=== PATIENT | female | born 1965 | race Two or more races ===

== ENCOUNTER 2021-02-10 11:53 | Outpatient (REF) | payer MEDICAID, SELFPAY ==
--- NOTE | ~2021-02-10 | MM_ITS ---
EXAMINATION: MM SCREENING DIGITAL BREAST TOMOSYNTHESIS, BILATERAL CLINICAL INFORMATION: Screening. Asymptomatic. The lifetime risk of breast cancer based on the Tyrer-Cuzick Model is 10.0%. COMPARISON: Mammography: None. TECHNIQUE: Digital breast tomosynthesis is performed in both the craniocaudal and mediolateral oblique views along with computer-aided detection (CAD). Synthesized 2D images are generated from the tomosynthesis. FINDINGS: There are scattered areas of fibroglandular density (ACR BI-RADS breast composition Category b). Within the left breast, about the upper outer aspect, approximately 6 cm from the nipple, there is a circumscribed 5 mm density without definite spiculation or microcalcifications for which further evaluation with spot compression views and ultrasound is recommended. Within the inferior medial aspect of the right breast, there is a lobular density measuring approximately 1.4 x 0.9 cm in size 6 cm from the nipple. Spot compression view and ultrasound is recommended. MM/MM tomosynthesis screening BI IMPRESSION: Bilateral breast densities for further evaluation as described. ASSESSMENT: BI-RADS 0: Incomplete - Need Additional Imaging Evaluation RECOMMENDATION: 1. Additional views of the bilateral breasts. 2. Targeted ultrasound if warranted after review of the additional views. 3. Radiology department staff will contact the patient for additional imaging. This patient's information was entered into a reminder system with a target due date for their next mammogram.
== END 2021-02-10 11:54 | disposition home or self-care (01) ==
LOC: HO.MAMMO 11:53
PROVIDERS: Visit Provider Nurse Practitioner
DX: Z12.31 Encounter for screening mammogram for malignant neoplasm of breast (principal)
CPT/HCPCS: 77063; 77067

== ENCOUNTER 2021-02-13 07:48 | Outpatient (REF) | payer MEDICAID, SELFPAY ==
--- NOTE | ~2021-02-13 | US_ITS ---
EXAMINATION: US DIAGNOSTIC ULTRASOUND BREAST, RIGHT CLINICAL INFORMATION: Right breast density inferior medial aspect.. COMPARISON: February 10, 2021 and February 13, 2021. TECHNIQUE: Ultrasound of the breast is performed with real-time leahy scale imaging and color Doppler. FINDINGS: Targeted right breast ultrasound no abnormal cystic or solid mass identified. No region of abnormal distal sound shadowing. No edematous change identified. Results are discussed with the patient at time of visit. US/US breast RT limited IMPRESSION: Right breast mammographic density without ultrasound correlate which may represent asymmetric island of breast parenchyma. Recommend 6 month follow-up right breast mammography. ASSESSMENT: BI-RADS 3: Probably Benign RECOMMENDATION: Diagnostic right mammography in 6 months. Diagnostic left ultrasound in 6 months.
--- NOTE | ~2021-02-13 | US_ITS ---
EXAMINATION: US DIAGNOSTIC ULTRASOUND BREAST, LEFT CLINICAL INFORMATION: Density upper outer aspect.. COMPARISON: Mammography of February 10, 2021 and February 13, 2021. TECHNIQUE: Ultrasound of the breast is performed with real-time leahy scale imaging and color Doppler. FINDINGS: Targeted left breast ultrasound demonstrates at the 2:00 position approximately 6 cm from nipple a 4 x 4 millimeter hypoechoic lesion with distal sound enhancement and no distal sound shadowing. No internal vascularity is identified. US/US breast LT limited IMPRESSION: 5 mm question complex cyst upper outer aspect of the left breast for which 6 month follow-up ultrasound is recommended. ASSESSMENT: BI-RADS 3: Probably Benign RECOMMENDATION: Diagnostic right mammography in 6 months. Diagnostic left ultrasound in 6 months.
--- NOTE | ~2021-02-13 | MM_ITS ---
EXAMINATION: MM DIAGNOSTIC DIGITAL BREAST TOMOSYNTHESIS, BILATERAL CLINICAL INFORMATION: Bilateral breast density, 1 in the upper outer aspect of the left breast and the other in the inferomedial aspect of the right breast. COMPARISON: Mammography: 02/10/2021 TECHNIQUE: Digital breast tomosynthesis is performed. 2D images are generated from the tomosynthesis. The following views are obtained: Spot compression views of both breasts in craniocaudal and 90 degree mediolateral views. FINDINGS: There are scattered areas of fibroglandular density (ACR BI-RADS breast composition Category b). LEFT BREAST: There is persistence of a circumscribed density about the upper outer aspect of the left breast measuring 5 mm in diameter and lying approximately 6 cm from the nipple. Targeted left breast ultrasound demonstrates at the 2 o'clock position approximately 6 cm from nipple, a 4 x 4 mm hypoechoic lesion with distal sound enhancement and no distal sound shadowing. No internal vascularity is identified. RIGHT BREAST: There is persistence of a lobular density about the inferomedial aspect of the right breast 7 cm from the nipple. This measures approximately 1.6 x 0.9 cm in size. TARGETED RIGHT BREAST ULTRASOUND: No abnormal cystic or solid mass identified. No region of abnormal distal sound shadowing. No edematous change identified. Results are discussed with the patient at time of visit. MM/MM tomosynthesis added view BI IMPRESSION: 1. A 5 mm question complex cyst, upper outer aspect of the left breast, for which 6 month follow-up ultrasound is recommended. 2. Right breast mammographic density without ultrasound correlate which may represent asymmetric island of breast parenchyma. Recommend 6 month follow-up right breast mammography. ASSESSMENT: BI-RADS 3: Probably Benign RECOMMENDATION: 1. Diagnostic right mammography in 6 months. 2. Diagnostic left ultrasound in 6 months. This patient's information was entered into a reminder system with a target due date for their next mammogram.
== END 2021-02-13 07:49 | disposition home or self-care (01) ==
LOC: HO.MAMMO 07:48
PROVIDERS: Visit Provider Nurse Practitioner
DX: R92.2 Inconclusive mammogram (principal)
CPT/HCPCS: 76642; 77062; 77066

== ENCOUNTER 2021-08-13 13:16 | Outpatient (REF) | payer MEDICAID, SELFPAY ==
--- NOTE | ~2021-08-13 | MM_ITS ---
EXAMINATION: MM DIAGNOSTIC DIGITAL BREAST TOMOSYNTHESIS, RIGHT US DIAGNOSTIC ULTRASOUND BREAST, LEFT CLINICAL INFORMATION: Short interval six-month follow-up: Focal nodular asymmetry right breast central lower inner quadrant and probable small complicated cyst upper outer left breast. The lifetime risk of breast cancer based on the Tyrer-Cuzick Model is 10%. COMPARISON: Mammography: 02/13/2021, 02/10/2021 (BI-RADS 0, baseline), bilateral ultrasound 02/13/2021. TECHNIQUE: Digital breast tomosynthesis is performed in both the craniocaudal and mediolateral oblique views along with computer-aided detection (CAD). Synthesized 2D images are generated from the tomosynthesis. Ultrasound left breast is targeted to the upper outer quadrant. Grayscale imaging and color Doppler are performed without and with harmonics. FINDINGS: Right Mammography: There are scattered areas of fibroglandular density (ACR BI-RADS breast composition Category b). Right breast parenchymal pattern is similar to prior studies. Macrolobulated focal nodular asymmetry lower inner quadrant is stable. Remainder of the breast is unremarkable. Right breast will be reassessed again at time of annual bilateral mammography, due in 6 months. Left Ultrasound: Ultrasound left breast demonstrates stable circumscribed hypoechoic nodule 2:00 position 6 cm from nipple measuring just under 5 mm. There is some peripheral mural low-level echogenicity which may represent apocrine metaplasia. There is increased through-transmission of sound. No interval solid component or associated color flow. Left nodule will be reassessed again at time of annual bilateral mammography, due in 6 months. Results are provided to the patient at time of visit by the technologist. MM/MM tomosynthesis diagnostic RT IMPRESSION: Right: -Macrolobulated focal nodular asymmetry stable from baseline exam. Left: -Probable benign complicated cyst just under 5 mm stable from prior targeted ultrasound. ASSESSMENT: BI-RADS 3: Probably Benign RECOMMENDATION: -Diagnostic mammography at time of annual bilateral exam, due in 6 months. -Targeted left breast ultrasound at time of diagnostic mammography appointment, due in 6 months. This patient's information was entered into a reminder system with a target due date for their next mammogram.
== END 2021-08-13 13:17 | disposition home or self-care (01) ==
LOC: HO.MAMMO 13:16
PROVIDERS: PCP Nurse Practitioner; Visit Provider Nurse Practitioner
DX: R92.2 Inconclusive mammogram (principal)
CPT/HCPCS: 76642; 77061; 77065

== ENCOUNTER 2022-02-19 13:11 | Outpatient (REF) | payer MEDICAID, SELFPAY ==
--- NOTE | ~2022-02-19 | MM_ITS ---
EXAMINATION: MM DIAGNOSTIC DIGITAL BREAST TOMOSYNTHESIS US TARGETED BREAST, LEFT CLINICAL INFORMATION: Left breast diagnostic for complex cyst. Yearly screening right mammography. The lifetime risk of breast cancer based on the Tyrer-Cuzick Model is 12.0%. COMPARISON: Mammography: 08/13/2021 and 02/13/2021 as well as 02/10/2021. TECHNIQUE: Digital breast tomosynthesis is performed in both the craniocaudal and mediolateral oblique views along with computer-aided detection (CAD). Synthesized 2-D images are generated from the tomosynthesis. Targeted left breast ultrasound. FINDINGS: There are scattered areas of fibroglandular density (ACR BI-RADS breast composition Category b). Stable lobulated density is seen within the inferior medial aspect of the right breast. No abnormal dominant mass or suspicious grouping of microcalcifications is identified. ULTRASOUND: Targeted ultrasound evaluation of the left breast 2 o'clock position, approximately 6 cm from the nipple, again demonstrates a 4 x 3 x 4 mm hypoechoic structure with some increased through sound transmission with what appears to be some peripheral wall echogenicity without definite central mural nodule. No internal vascularity present. Results are discussed with the patient at time of visit. MM/MM tomosynthesis diagnostic BI IMPRESSION: 1. There are no significant changes from prior study. Stable right breast lobular density for which there was no ultrasound correlate on previous study. 2. Stable appearance of left breast complex cyst for which 6 month follow up ultrasound only is recommended. ASSESSMENT: BI-RADS 3: Probably Benign. RECOMMENDATION: Diagnostic ultrasound in 6 months. This patient's information was entered into a reminder system with a target due date for their next mammogram.
== END 2022-02-19 13:12 | disposition home or self-care (01) ==
LOC: HO.MAMMO 13:11
PROVIDERS: Visit Provider Registered Nurse
DX: N60.02 Solitary cyst of left breast (principal); N64.89 Other specified disorders of breast
CPT/HCPCS: 76642; 77062; 77066

== ENCOUNTER 2022-08-26 12:56 | Outpatient (REF) | payer MEDICAID, SELFPAY ==
--- NOTE | ~2022-08-26 | US_ITS ---
EXAMINATION: US DIAGNOSTIC ULTRASOUND BREAST, LEFT CLINICAL INFORMATION: Follow-up probable benign complicated cyst under 1 cm 2:00 left breast. COMPARISON: Left breast ultrasound 02/19/2022, 08/13/2021, 02/13/2021 (BI-RADS 3), mammography dating back to baseline exam 02/10/2021. TECHNIQUE: Ultrasound left breast is targeted to the upper outer quadrant. Grayscale imaging and color Doppler are performed without and with harmonics. FINDINGS: The 4 mm complicated cyst for follow-up 2:00 position 6 cm from nipple is similar to prior ultrasound studies. Again, there is circumscribed margins with increased through-transmission of sound and no associated color flow. There is some internal peripheral mural echogenicity suggesting apocrine metaplasia. No significant changes. No additional findings and targeted area. Results are provided to the patient at time of visit by the technologist. US/US breast LT limited IMPRESSION: - Small complicated cyst 2:00 position similar to prior ultrasound studies, stable. ASSESSMENT: BI-RADS 3: Probably Benign RECOMMENDATION: Targeted ultrasound left breast at time of next bilateral annual mammography to conclude long-term surveillance. This patient's information was entered into a reminder system with a target due date for their next mammogram.
== END 2022-08-26 12:57 | disposition home or self-care (01) ==
LOC: HO.MAMMO 12:56
PROVIDERS: PCP Registered Nurse; Visit Provider Registered Nurse
DX: N63.21 Unspecified lump in the left breast, upper outer quadrant (principal)
CPT/HCPCS: 76642

== ENCOUNTER 2022-12-10 11:33 | Outpatient (REF) | payer MEDICAID, SELFPAY ==
[2022-12-10 13:09] LABS: MANUAL DIFF FLAG NO
[2022-12-10 13:29] LABS: Basophils Percent Auto 0.7 % (0-2); Eosinophils Absolute Auto 0.1 X10*3/uL (0.0-0.4); Eosinophils Percent Auto 1.9 % (0-4); Imm Gran Abs Auto 0.02 X10*3/uL (0.00-0.03); Imm Gran Pct Auto 0.3 % (0.0-0.4); Lymphocytes Absolute Auto 1.9 X10*3/uL (1.2-4.9); Lymphocytes Percent Auto 32.3 % (20-40); Mean Corpuscular HGB Conc 32.5 g/dl (31.0-35.0); Mean Corpuscular Hemoglobin 30.2 pg (27.0-33.0); Mean Platelet Volume 11.4 fL (9.4-12.3); Monocytes Absolute Auto 0.5 X10*3/uL (0.1-1.2); Monocytes Percent Auto 7.6 % (2-11); Neutrophils Absolute Auto 3.4 x10*3/uL (2.0-8.3); Neutrophils Percent Auto 57.2 % (45-73); Platelet Count 300 X10*3/uL (160-400); Red Cell Distribution Width 11.9 % (11.0-16.0); White Blood Count 5.9 X10*3/uL (4.8-10.8)
[2022-12-10 13:31] LABS: Estimated Average Glucose 140 mg/dL; Hemoglobin A1c % 6.5 % (<6.0)
[2022-12-10 13:59] LABS: Creatinine Urine 25.38 mg/dL; Microalbumin Urine < 5.0 mg/L
[2022-12-10 14:09] LABS: Alanine Aminotransferase 26 U/L (0-31); Albumin Level 4.5 g/dL (3.5-5.0); Alkaline Phosphatase 85 U/L (39-117); Anion Gap 10 (12-20); Aspartate Amino Transferase 18 U/L (5-31); Bilirubin Total 0.7 mg/dL (0.0-1.0); Blood Urea Nitrogen 9 mg/dL (9-16); Carbon Dioxide 29 mmol/L (22-29); Chloride 104 mmol/L (96-108); Cholesterol 245 mg/dL (<200); Estimated Glomerular Filt Rate > 60; Glucose Random 130 mg/dL (60-115); HDL Cholesterol 41 mg/dL (>40); LDL Cholesterol Calculated 168 mg/dL (<100); Potassium 3.9 mmol/L (3.3-5.1); Sodium 139 mmol/L (135-145); Triglycerides 184 mg/dL (<150)
[2022-12-10 14:23] LABS: TSH reflex Free T4 2.02 uIU/mL (0.32-4.0)
[2022-12-10 14:38] LABS: Folate 5.9 ng/mL (> or = 4.0); Vitamin B12 398 pg/mL (200-900)
[2022-12-10 15:43] LABS: CT PCR NOT DETECTED (Not Detect.); NG PCR NOT DETECTED (Not Detect.)
[2022-12-11 09:12] LABS: HBc Num1 0.27 S/CO (0.00-0.79); HIV AB/AG Nonreactive (Nonreactive); HIV Num 1 0.05 S/CO (0.00-0.99); Hepatitis B Core Antibody Nonreactive (Nonreactive); Hepatitis B Surface Antigen Negative (Negative); ~Hepatitis B Surface Antibody NONREACTIVE (Nonreactive)
[2022-12-11 09:18] LABS: ~HepC Num1 0.09 S/CO (0.00-0.79); ~Hepatitis C Antibody Nonreactive (Nonreactive)
[2022-12-11 09:31] LABS: Syphilis Screen Nonreactive (Nonreactive)
[2022-12-15 17:49] LABS: VITAMIN D (1,25 OH) D3 81 pg/mL; Vit D (1,25-Dihydroxy) Total 81 pg/mL (18-72); Vitamin D (1,25 OH) D2 <8 pg/mL
== END 2022-12-10 11:34 | disposition home or self-care (01) ==
LOC: HO.HHCL 11:33
PROVIDERS: Visit Provider Student in an Organized Health Care Education/Training Program
DX: Z00.00 Encounter for general adult medical examination without abnormal findings (principal); Z11.4 Encounter for screening for human immunodeficiency virus [HIV]; Z11.3 Encounter for screening for infections with a predominantly sexual mode of transmission
CPT/HCPCS: 0353U; 80053; 80061; 82570; 82607; 82652; 82746; 83036; 84443; 85025; 86704; 86706; 86780; 86803; 87340; 87389

== ENCOUNTER 2023-01-31 12:13 | Outpatient (AMB) | payer MEDICAID, SELFPAY ==
--- NOTE | 2023-01-31 12:30 | A.OFFVIS_ITS ---
Intake Vital Signs 01/31/23 12:34 Height 5 ft 4 in Weight 165 lb BMI 28.3 BP 132/68 Blood Pressure Location Lt brachial Position Sitting Pulse 61 Intake Visit Reasons: Colonoscopy Screening Intake Note: Patient new consult for 1st pre colonoscopy. Patient denies any GI issues. Count Team Member Required: Yes Count Team Member Name: [facility] [place] Accompanied by: Self / Same As Patient Allergies No Known Allergies [No Known Allergies*] Allergy (Verified 01/31/23 12:29) Medication List - Last Reconciled 01/31/23 by Yudy Ahuja PA-C atorvastatin 20 mg PO DAILY lisinopril 5 mg PO DAILY metformin 500 mg PO DAILY HPI HPI Comments History of Present Illness Details 57 y/o F- index screening colonoscopy Normal bowel pattern Appetite good No family hx CRC No cardiac or respiratory issues No N/V/D- abdominal pain- fever or chills PFSH Social History Household Members: Family Alcohol intake: never Patient Tobacco Use Status: Never used Tobacco Use of substances other than those prescribed or required for medical reasons: No Review of Systems Const All systems reviewed & are unremarkable except as noted in HPI and below Card Denies chest pain and Denies dyspnea Resp Denies dyspnea GI Reports no additional complaints Physical Exam Vital Signs: Last Vital Signs Pulse 61 01/31/23 12:34 BP 132/68 01/31/23 12:34 BMI result Body Mass Index 28.3 Const General: cooperative, healthy appearing, comfortable and no acute distress Orientation/consciousness: patient oriented x3 Limitations: language barrier Eyes Sclerae: sclerae normal Resp Effort & Inspection: normal respiratory effort and able to speak in complete sentences Auscultation: clear to auscultation bilaterally, no rales, no rhonchi and no wheezes Cardio Rate: regular rate Rhythm: regular rhythm Heart sounds: S1 normal heart sound present and S2 normal heart sound present GI Palpation (GI): Soft to palpation and nontender Auscultation: normal bowel sounds Skin General skin exam: no rashes or lesions noted Neuro General: patient oriented x3 Extrem General: Yes full ROM Psych Appearance: grossly normal and well kempt Mental Status: mental status grossly normal Speech and movement: Normal speech and movement present and Clear speech present Affect: normal affect Attitude: cooperative Thought process: Normal thought process present Thought content: Normal thought content present Insight: Good insight present (Psych) Judgement: Good judgement present (Psych) Assessment & Plan Assessment & Plan (1) Encounter for screening colonoscopy: Code(s): Z12.11 - Encounter for screening for malignant neoplasm of colon Plan: index screening colonoscopy Plan Index screening colonoscopy MiraLax Gatorade prep Omit daily metformin morning of procedure Orders: Orders Colonoscopy - GI Use Only Today Z12.11 - Encounter for screening for malignant neoplasm of colon Medications: New bisacodyl (Dulcolax (bisacodyl)) Day before procedure, prep day Take 4 tablets by mouth upon awakening followed by large glass of water 20 mg (4 x 5 mg) PO ONCE 4 tabs 0RF colonoscopy prep 1 day Z12.11 - Encounter for screening for malignant neoplasm of colon polyethylene glycol 3350 (Miralax) Take as directed by mouth the day before your procedure. 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
[2023-01-31 12:34] VITALS: BP 132/68; PULSE 61; BMI 28.3
== END 2023-01-31 13:23 | disposition home or self-care (01) ==
PROVIDERS: PCP Registered Nurse; Visit Provider Physician Assistant
DX: Z12.11 Encounter for screening for malignant neoplasm of colon (principal); Z01.818 Encounter for other preprocedural examination
CPT/HCPCS: 99203

== ENCOUNTER → 2023-01-31 12:13 | Outpatient (BNVA) | payer MEDICAID, SELFPAY | PROVIDERS: PCP Registered Nurse; Visit Provider Physician Assistant | DX: Z12.11 Encounter for screening for malignant neoplasm of colon (principal) | CPT/HCPCS: 99212 ==

== ENCOUNTER 2023-02-18 14:28 | Outpatient (REF) | payer MEDICAID, SELFPAY ==
--- NOTE | ~2023-02-18 | US_ITS ---
EXAMINATION: MM DIAGNOSTIC DIGITAL BREAST TOMOSYNTHESIS, BILATERAL US BREAST LIMITED, BILATERAL MAMMOGRAPHY: CLINICAL INFORMATION: Left breast nodule follow-up yearly. Patient also due for bilateral screening. COMPARISON: Mammography: 02/20/2022, 08/13/2021, 02/13/2021, 02/10/2021. TECHNIQUE: Digital breast tomosynthesis is performed in both the craniocaudal and mediolateral oblique views along with computer-aided detection (CAD). Synthesized 2D images are generated from the tomosynthesis. FINDINGS: There are scattered areas of fibroglandular density (ACR BI-RADS breast composition Category b). Stable lobulated density is seen within the inferior medial aspect of the right breast. No abnormal dominant mass or suspicious grouping of microcalcifications is identified. Within the left breast, there is persistence of a circumscribed density about the upper outer aspect of the left breast measuring 5 mm in diameter and lying approximately 6 cm from the nipple. This is known to represent a cyst. ULTRASOUND: CLINICAL INFORMATION: Left breast nodule follow-up yearly. Patient also with right breast nodule at the 4:00 axis. COMPARISON: 08/26/2022, 02/19/2022, 08/13/2021, 08/13/2020 (bilateral), TECHNIQUE: Targeted sonographic evaluation was performed using a high frequency linear transducer. Attention was given to the right 4:00 axis. Selected archived documentation. FINDINGS: RIGHT BREAST: There is a mixture of fatty and fibroglandular tissue. There is a hypoechoic smoothly marginated wider than tall mass measuring 1.0 x 0.5 x 0.3 cm at the 4:00 axis, 3 cm from the nipple.. This is most likely a fibroadenoma, and 6 month follow-up right ultrasound recommended to ensure stability. The 4 mm simple cyst in the left breast at the 2:00 axis is benign, and no further follow-up is recommended. US/US breast RT limited mamm only IMPRESSION: Probable fibroadenoma in the right breast at the 4:00 axis as described above, for which six-month interval follow-up is ultrasound recommended to ensure stability. No further follow-up in the left breast deemed necessary. OVERALL ASSESSMENT: Mammography: BI-RADS 3 - Probably benign finding(s) - 6 month follow-up suggested Ultrasound: BI-RADS 3 - Probably benign finding(s) - 6 month follow-up suggested RECOMMENDATION: 6 Month F/U Results were provided to the patient at time of visit by the technologist. This patient's information was entered into a reminder system with a target due date for their next mammogram.
== END 2023-02-18 14:29 | disposition home or self-care (01) ==
LOC: HO.MAMMO 14:28
PROVIDERS: PCP Student in an Organized Health Care Education/Training Program; Visit Provider Student in an Organized Health Care Education/Training Program
DX: R92.2 Inconclusive mammogram (principal)
CPT/HCPCS: 76642; 77062; 77066

== ENCOUNTER → 2023-02-18 14:30 | Outpatient (BNV) | payer MEDICAID, SELFPAY | PROVIDERS: PCP Student in an Organized Health Care Education/Training Program; Visit Provider Radiology Diagnostic Radiology | DX: D24.2 Benign neoplasm of left breast (principal); D24.1 Benign neoplasm of right breast | CPT/HCPCS: 76642; 77062; 77066 ==

== ENCOUNTER 2023-07-08 08:51 | Day surgery (SDC) | payer MEDICAID, SELFPAY ==
--- NOTE | 2023-07-08 08:52 | HO.ANESPROP2 ---
[facility] Active Problems Active Problems: All Active Problems Encounter for screening colonoscopy (Acute) diabetes hypertension Past Medical History Medical History Diabetes Hypertension Surgical History History of Problems with Anesthesia: No Social History Social History Household Members: Family Alcohol intake: never Patient Tobacco Use Status: Never used Tobacco Meds Allergies Allergy/AdvReac Type Severity Reaction Status Date / Time No Known Allergies Allergy Verified 01/31/23 12:29 [No Known Allergies*] Home Medications ?Medication ?Instructions ?Recorded ?Confirmed ?Last Taken ?Type atorvastatin 20 mg tablet 20 mg PO DAILY 01/31/23 07/08/23 Unknown History lisinopril 5 mg tablet 5 mg PO DAILY 01/31/23 07/08/23 Unknown History metformin 500 mg tablet 500 mg PO DAILY 01/31/23 07/08/23 Unknown History Exam Airway Mallampati Class: II TM Dist: >3cm Neck ROM: Full Partial: Upper Loose/Missing/Broken Teeth: Yes and Upper Heart: RRR Lungs: CTA Assessment and Plan Assessment Anesthesia Assessment: Anesthesia Plan Discussed and Chart Reviewed Final Anesthetic Review History of Problems with Anesthesia: No NPO: Yes ASA Class: II Final Preanesthetic Review: Meds/Allgs Chart Reviewed, Consent Obtained/Reviewed and Anes Risks/Benef Reviewed Patient Risk: Low Procedure Risk: Low Anesthetic Plan Anesthetic Plan: MAC: Disposition: Standard PACU
[2023-07-08 09:09] VITALS: BMI 28.0
--- NOTE | 2023-07-08 09:14 | MHC.SHP ---
Pre-Procedural Eval Section A - 24 Hr Update-Section A only Date of Service: 07/08/23 The patient is an INPATIENT: No The patient has been examined within 24 hours of the surgical procedure. The History & Physical has been completed within 30 days and I have reviewed it.: No Section B - Complete if H&P > 30 days Chief Complaint: Colon cancer screening Relevant Family History (Specify if Yes): No Relevant Social History: None Present Medications: see Short Stay Collaborative assessment Medical History: Significant History (Hypertension, diabetes mellitus) History of Previous Operations: No relevant previous surgery Allergies: Allergies Allergy/AdvReac Type Severity Reaction Status Date / Time No Known Allergies Allergy Verified 01/31/23 12:29 [No Known Allergies*] Review of Systems Sugical H&P ROS: Negative: Constitution, Cardiovascular, Respiratory and Gastrointestinal Exam Surgical H&P Exam: Normal: Heart, Normal: Lungs, Normal: Extremities and Normal: Abdomen Plan Diagnosis/Plan: Unchanged I have reviewed the history and physical and performed a pertinent physical examination on my patient. No changes have occurred unless specified. Time Spent With Patient Time: Total time managing care of this patient today ____ minutes.
[2023-07-08 09:17] VITALS: BP 163/73; PULSE 60; RESP 18; TEMP 36.6; O2SAT 96
[2023-07-08 09:24] LABS: Glucose, Whole Blood 153 mg/dL (60-115)
--- NOTE | 2023-07-08 10:01 | W.PM.OPN ---
Operative Note Operative Note Date of Service: 07/08/23 Narrative: COLONOSCOPY TILL CECUM WITH BIOPSIES AND SNARE POLYPECTOMY Pre-op diagnosis: Colon cancer screening. Post-op diagnosis:? Colon polyps, Diverticulosis, hemorrhoids Endoscopist:? Pham Santa MD Anesthesia:?MAC Consent: Indications for the procedure and potential complications of bleeding, perforation, reaction to medications and missed diagnosis were discussed with the patient and informed consent was obtained. Instrument: Olympus PCF H 190 L variable stiffness pediatric colonoscope Monitoring: Vital signs and clinical assessment, intermittent blood pressure monitoring, continuous EKG monitoring, Pulse oximetry and Carbon Dioxide monitoring were done throughout the procedure. Please see anesthesia flowsheet. Colon withdrawl time was 22 minutes. Procedure: The patient was placed in the left lateral decubitis position and pre-procedure medications were administered. After a digital rectal examination of the ano-rectum, the video colonoscope was inserted into the rectum and advanced through the colon to the cecum. The colonoscope was slowly withdrawn in a retrograde panoramic fashion and the colon mucosa was carefully examined including a retroflexed view of the rectum. Findings and interventions are described below. Procedure Difficulty: Colon was long and tortuous and there was some loop formation Findings: Terminal Ileum: Not evaluated Cecum: Normal Ascending Colon: Normal Transverse Colon: Normal Descending Colon: Moderate diverticulosis Sigmoid Colon: A few 4-8 mm diminutive appearing polyps in the recto-sigmoid. One polyp removed with a cold snare and polyp was not retrieved. Moderate diverticulosis Rectum: A few 4-8 mm diminutive appearing polyps in the recto-sigmoid. Two polyps were removed with a cold biopsy Ano-rectum: Moderate internal hemorrhoids Colon preparation: Good after some irrigation. [place] Bowel Preparation Scale Right colon; 3 Transverse colon: 2 Left colon; 3 (0 = Unprepared colon segment with mucosa not seen due to solid stool that cannot be cleared. 1 = Portion of mucosa of the colon segment seen, but other areas of the colon segment not well seen due to staining, residual stool and/or opaque liquid. 2 = Minor amount of residual staining, small fragments of stool and/or opaque liquid, but mucosa of colon segment seen well. 3 = Entire mucosa of colon segment seen well with no residual staining, small fragments of stool or opaque liquid) Impression and Post Procedure Diagnosis: Colonoscopy Findings: Three small polyps were removed (one polyp was not retrieved) Moderate diverticulosis seen in the left colon Moderate hemorrhoids on retroflexed exam. Plan: Pt has a FU appointment on 07/21/23 with LIZETTE Donaldson. Repeat Colonoscopy in 3-5 years if polyps are adenomatous and 10 year if polyps are hyperplastic. Above findings were reviewed with the patient and relevant handouts were given and the discharge area.
[2023-07-08 10:45] VITALS: BP 124/55; PULSE 57; RESP 14; TEMP 36.1; O2SAT 98
[2023-07-08 11:00] VITALS: BP 113/51; PULSE 49; RESP 18; TEMP 36.1; O2SAT 99
== END 2023-07-08 11:30 | disposition home or self-care (01) ==
PROVIDERS: PCP Student in an Organized Health Care Education/Training Program; Visit Provider Internal Medicine Gastroenterology
PROC: 0DJD8ZZ Inspection of Lower Intestinal Tract, Via Natural or Artificial Opening Endoscopic (ICD-10-PCS; CPT 45378; principal; 2023-07-08 10:40)
DX: Z12.11 Encounter for screening for malignant neoplasm of colon (principal); K62.1 Rectal polyp; K63.5 Polyp of colon; K57.30 Diverticulosis of large intestine without perforation or abscess without bleeding; K64.8 Other hemorrhoids; I10 Essential (primary) hypertension; E11.9 Type 2 diabetes mellitus without complications; Z79.84 Long term (current) use of oral hypoglycemic drugs; Z79.899 Other long term (current) drug therapy
CPT/HCPCS: 45385; 45380; 82947; 88305; J1596; J2704

== ENCOUNTER → 2023-07-08 08:51 | Outpatient (BNV) | payer MEDICAID, SELFPAY | PROVIDERS: PCP Student in an Organized Health Care Education/Training Program; Visit Provider Internal Medicine Gastroenterology | DX: Z12.11 Encounter for screening for malignant neoplasm of colon (principal); K62.1 Rectal polyp; K63.5 Polyp of colon; K57.90 Diverticulosis of intestine, part unspecified, without perforation or abscess without bleeding; K64.8 Other hemorrhoids | CPT/HCPCS: 45380; 45385 ==

== ENCOUNTER 2023-07-21 09:20 | Outpatient (AMB) | payer MEDICAID, SELFPAY ==
--- NOTE | 2023-07-21 09:30 | MHC.OFFVIS ---
Vital Signs 07/21/23 09:32 Height 5 ft 4 in Weight 165 lb 5.547 oz BMI 28.4 BP 135/69 Blood Pressure Location Lt brachial Position Sitting Pulse 55 Intake Visit Reasons: s/p colon Intake Note: Bozena presents in the office as a follow up colonoscopy. CC: She states that she is just here for results. Allergies No Known Allergies [No Known Allergies*] Allergy (Verified 07/21/23 09:31) HPI Comments Details: A 57-year-old female follows up after recent colonoscopy with polypectomy She tolerated procedure well Reviewed procedure report, pathology and recommendation No GI complaints [facility] Medical History (Updated 07/27/23 @ 12:59 by Yudy Ahuja PA-C) Diabetes Hypertension Surgical History Hx of colonoscopy Social History Household Members: Family Alcohol intake: never Patient Tobacco Use Status: Never used Tobacco Review of Systems Const All systems reviewed & are unremarkable except as noted in HPI and below Physical Exam Vital Signs: Last Vital Signs Pulse 55 07/21/23 09:32 BP 135/69 07/21/23 09:32 BMI result Body Mass Index 28.4 Const General: cooperative, healthy appearing and comfortable Orientation/consciousness: patient oriented x3 Limitations: language barrier Resp Effort & Inspection: normal respiratory effort and able to speak in complete sentences Neuro General: patient oriented x3 Extrem General: Yes full ROM Psych Appearance: grossly normal and well kempt Mental Status: mental status grossly normal Speech and movement: Normal speech and movement present and Clear speech present Affect: normal affect Attitude: cooperative Thought content: Normal thought content present Results Reviewed Results Reviewed: mpression and Post Procedure Diagnosis: Colonoscopy Findings: Three small polyps were removed (one polyp was not retrieved) Moderate diverticulosis seen in the left colon Moderate hemorrhoids on retroflexed exam. Plan: Pt has a FU appointment on 07/21/23 with LIZETTE Donaldson. Repeat Colonoscopy in 3-5 years if polyps are adenomatous and 10 year if polyps are hyperplastic. OB: 1965 Submitted by: Pham Santa MD Copies to: Shari Haas MD MR #: [id number] Status: DEP [facility] [place] Collected: 07/08/23 Location: .[facility] Received: 07/08/23 Diagnosis Colon, rectal polyp, biopsy: Serrated polyp with focal features suggesting sessile serrated lesion/polyp without dysplasia (follow-up warranted). 3 year repeat Assessment & Plan Assessment & Plan (1) Sessile serrated polyp of colon: Code(s): D12.6 - Benign neoplasm of colon, unspecified Category: Medical Plan: Three year recall (2) Diverticulosis: Code(s): K57.90 - Diverticulosis of intestine, part unspecified, without perforation or abscess without bleeding Category: Medical Plan: High-fiber ER protocol Plan 3 year recall colonoscopy ER protocol for diverticular Patient Instructions: 3 year recall colonoscopy Reinforced importance of follow Maintain high-fiber diet Diverticulosis/diverticulitis ER protocol Coding Level of Care Code Est Pt Level 3 (09385) Diagnoses Sessile serrated polyp of colon D12.6 Diverticulosis K57.90 Time Spent (min) 25 Comment
[2023-07-21 09:32] VITALS: BP 135/69; PULSE 55; BMI 28.4
== END 2023-07-21 11:16 | disposition home or self-care (01) ==
PROVIDERS: PCP Student in an Organized Health Care Education/Training Program; Visit Provider Physician Assistant
DX: D12.6 Benign neoplasm of colon, unspecified (principal); K57.90 Diverticulosis of intestine, part unspecified, without perforation or abscess without bleeding
CPT/HCPCS: 99213

== ENCOUNTER → 2023-07-21 09:20 | Outpatient (BNVA) | payer MEDICAID, SELFPAY | PROVIDERS: PCP Student in an Organized Health Care Education/Training Program; Visit Provider Physician Assistant | DX: K57.90 Diverticulosis of intestine, part unspecified, without perforation or abscess without bleeding (principal); D12.6 Benign neoplasm of colon, unspecified | CPT/HCPCS: 99212 ==

== ENCOUNTER 2024-07-26 20:06 | Emergency (ER) | payer MEDICAID, SELFPAY ==
[2024-07-26 20:31] VITALS: BP 178/75; PULSE 60; RESP 18; TEMP 36.3; O2SAT 98; BMI 26.9
--- NOTE | 2024-07-26 20:31 | ED.SKABFB ---
HPI - Skin/Abscess/Foreign Bdy General Chief complaint: Skin/Abscess/Foreign Body Stated complaint: neck rash Time Seen by Provider: 07/26/24 20:40 Source: patient, family, RN notes reviewed and old records reviewed Mode of arrival: ambulatory History of Present Illness ED Provider: Joan Singletary PA-C HPI narrative: 58-year-old female with a past medical history HTN, diabetes, presenting to the ED complaining of pruritic, burning rash to neck, bilateral upper extremities and axilla x 2 weeks. Reports associated headache. Has been using Claritin and CeraVe lotion at home without relief. Denies any new exposures including soaps, lotion, detergent, medications, tick or insect bites. Denies seeing medical provider for this yet.. Denies throat closing sensation, SOB Related Data Home Medications ?Medication ?Instructions ?Recorded ?Confirmed atorvastatin 20 mg tablet 20 mg PO DAILY 01/31/23 07/08/23 lisinopril 5 mg tablet 5 mg PO DAILY 01/31/23 07/08/23 metformin 500 mg tablet 500 mg PO DAILY 01/31/23 07/08/23 Previous Rx's ?Medication ?Instructions ?Recorded cetirizine 10 mg capsule (Zyrtec) 10 mg PO DAILY PRN allergy 07/26/24 symptoms #14 caps diphenhydramine HCl 25 mg capsule 25 mg PO TID PRN rash #14 caps 07/26/24 (Benadryl) prednisone 20 mg tablet 40 mg (2 x 20 mg) PO DAILY 5 days 07/26/24 #10 tabs triamcinolone acetonide 0.025 % 1 appl topical BID #60 mL 07/26/24 lotion Allergies Allergy/AdvReac Type Severity Reaction Status Date / Time No Known Allergies Allergy Verified 07/26/24 20:33 [No Known Allergies*] Review of Systems Review of Systems: Yes all other systems are reviewed and are negative Constitutional: Constitutional: Reports as per [facility] Past Medical History Attestation statement: The following information was validated with the patient. Source: old records reviewed Medical History Diabetes Hypertension Surgical History Hx of colonoscopy Social History Social History Household Members: Family Alcohol intake: never Patient Tobacco Use Status: Never used Tobacco Do you have a plan to hurt others: No Plan Physical Exam Vital Signs: Vital Signs: Last Vital Signs Temp 97.3 F 07/26/24 20:31 Pulse 60 07/26/24 20:31 Resp 18 07/26/24 20:31 BP 178/75 H 07/26/24 20:31 Pulse Ox 98 07/26/24 20:31 O2 Del Method Room Air 07/26/24 20:31 BMI result Body Mass Index 26.9 Const: General: cooperative, healthy appearing and no acute distress Orientation/consciousness: patient oriented x3 Limitations: no limitations HEENT: Head: Yes normal to inspection and Yes atraumatic Ears: hearing grossly normal bilaterally General nose exam: Normal external nose present Face and sinus: Yes normal facial exam Mouth: Normal oral and palatal mucosa present, no audible dysphonia and no drooling Throat: Yes posterior oropharynx normal, No peritonsillar mass, No uvula laterally displaced and No uvular edema Eyes: General: appearance normal, both eyes and all related structures EOM: EOMs intact bilaterally Neck: Neck: Yes normal visual inspection and Yes no meningeal signs Resp: Effort & Inspection: normal respiratory effort, no respiratory distress and no stridor Cardio: Rate: regular rate Skin: Other: + erythematous dry rash noted to posterior neck, bilateral antecubital regions and bilateral axilla. No sloughing. No open wounds. No drainage. No fluctuance/induration. No streaking. No palm/sole involvement. No mucous membrane involvement Wounds: no wounds Neuro: General: patient oriented x3, tone normal and no meningeal signs Cranial nerves: Yes CN's II-XII intact bilaterally Gait exam (Neuro): Normal gait present Extrem: General: Yes normal to inspection Medical Decision Making Medical Decision Making MDM Narrative: 58-year-old female with a past medical history HTN, diabetes, presenting to the ED complaining of pruritic, burning rash to neck, bilateral upper extremities and axilla x 2 weeks. On exam vital signs stable, NAD, nontoxic appearing, physical exam as noted above. Concern for contact dermatitis vs psoriasis vs eczema. No evidence of anaphylaxis, SJS/TENs Plan: Topical/oral steroid, Benadryl, Zyrtec, dermatology follow-up Please refer to course for remaining clinical decision making, interpretation of labs/imaging results, and discussions with consultants and/or family members. Results discussed with patient including worrisome signs and symptoms and strict return precautions, and when to return to the emergency department. They verbalized understanding and feel safe for discharge at this time. Differential Diagnosis Differential Diagnoses: The differential diagnosis associated with the presentation includes As above External Record Review External record reviewed: Inpatient record, Office record, Outpatient record, Prior outpatient labs, Prior outpatient radiology, Primary care record and Outside ED record Tests considered The following testing was considered but not selected: As above Prescription Management I considered prescription management with: Other Chronic Conditions Patient?s care impacted by: Other Social Determinants Patient?s care significantly limited by Social Determinants of Health including: Other Social Determinant of Health Discharge Plan Discharge Clinical Impression: Rash Patient Disposition: Home, Self-Care Instructions: Acute Rash (ED) Additional Instructions: You need to follow up with Dermatology. Call tomorrow morning to start making appointments Triamcinolone as a topical steroid. Apply to rash only. Avoid application to face, hands, feet and genital region as can discolored your skin Benadryl will help with itching, this will make you drowsy Zyrtec will also help with itching, you can take this during the day Prednisone as an oral steroid If symptoms persist or worsen, rashes worsening, you shortness breath or chest pain return to the ED Prescriptions: New prednisone 20 mg tablet 40 mg PO DAILY 5 Days Qty: 10 0RF triamcinolone acetonide 0.025 % lotion 1 appl topical BID Qty: 60 0RF diphenhydramine HCl [Benadryl] 25 mg capsule 25 mg PO TID PRN (Reason: rash) Qty: 14 0RF Zyrtec 10 mg capsule 10 mg PO DAILY PRN (Reason: allergy symptoms) Qty: 14 0RF No Action metformin 500 mg tablet 500 mg PO DAILY atorvastatin 20 mg tablet 20 mg PO DAILY lisinopril 5 mg tablet 5 mg PO DAILY Referrals: [facility] [Outside] [facility] [Outside] Print Language: [place]
== END 2024-07-26 20:55 | disposition home or self-care (01) ==
PROVIDERS: Emergency Provider Emergency Medicine Emergency Medical Services
DX: R21 Rash and other nonspecific skin eruption (principal); R51.9 Headache, unspecified; E11.9 Type 2 diabetes mellitus without complications; I10 Essential (primary) hypertension; Z79.84 Long term (current) use of oral hypoglycemic drugs; Z79.02 Long term (current) use of antithrombotics/antiplatelets; Z79.899 Other long term (current) drug therapy
CPT/HCPCS: 99281; 99283